=== PATIENT | male | born 1975 | race Caucasian/White ===

== ENCOUNTER 2017-12-19 08:25 | Day surgery (SDC) | payer BC, MEDICAID ==
[2017-12-17 10:24] VITALS: BMI 37.4
[~2017-12-19 08:25] MED LIST: LACTATED RINGERS 1,000 ML IV SCH
[2017-12-19 08:49] VITALS: TEMP 98.7
[2017-12-19] MEDS ORDERED: PROPOFOL 10 MG/ML 20 ML VIAL IV ONE (09:16)
--- NOTE | 2017-12-19 10:03 | P.PCN ---
Date of Procedure: 12/19/17 Procedure(s) Performed: Procedure: Colonoscopy and polypectomy and biopsy. Preoperative diagnosis: History of diarrhea and intermittent rectal bleeding. Postoperative diagnosis: 1. Small cecal polyp snared but no large polyps or cancer. 2. Mild sigmoid diverticulosis with no evidence of acute diverticulitis or strictures. 3. Low-grade internal hemorrhoids not bleeding at the time of this exam, possibly because of intermittent bleeding. 4. Exam of the colon and terminal ileum is, otherwise, normal with no evidence of inflammatory bowel disease. 5. Biopsies obtained from the terminal ileum and right colon to rule out microscopic ileitis and colitis. Preparation: HalfLytely prep. Sedation: Was provided by anesthesia. Brief clinical history: The patient is a 42-year-old male who is scheduled for this evaluation for the above reasons. He had history of chronic diarrhea, mostly postprandial and was told over the years that he has irritable bowel. He has observed intermittent rectal bleeding this year which he thinks is related to him eating sausages. The blood is always fresh and around the stools but not mixed with the stools. He has no anal pain. No family history of inflammatory bowel disease or colon cancer. This would be his first colonoscopy. Procedure: With the patient on his left lateral decubitus position and after informed consent and adequate sedation, the perianal area was active and it did not show any fissures or fistulas. There were no masses felt on digital rectal examination. The Olympus CFQ 160L video colonoscope was then inserted in the rectum in the usual fashion and advanced to the cecum. I intubated the ileocecal valve and examined the terminal ileum. Terminal ileum and colon appeared healthy with no edema, erythema, friability, ulceration, exudation or spontaneous bleeding. There were few small diverticular orifices seen scattered in the sigmoid with no evidence of acute diverticulitis or strictures. There was also a small polyp in the cecum which I snared and retrieved by suction. There were no large polyps or cancer. I obtained biopsies from the terminal ileum and right colon then I retroflexed the endoscope in the rectum before the endoscope was withdrawn. Low-grade internal hemorrhoids were noted with no evidence of bleeding. The patient tolerated the procedure well. Plan: The patient was reassured. Discussed dietary measures and local care for hemorrhoids. He will follow up with you as planned and further plans can be made based on his course and biopsy results. I recommended repeat exam in 5 years because of the finding of polyp.
[2017-12-19 10:25] VITALS: BP 118/82; PULSE 65; RESP 18
== END 2017-12-19 10:47 | disposition home or self-care (01) ==
LOC: ORWHC2ENDO 08:25
DX: D12.0 Benign neoplasm of cecum (principal); K57.30 Diverticulosis of large intestine without perforation or abscess without bleeding; K64.8 Other hemorrhoids; K58.9 Irritable bowel syndrome, unspecified; E11.9 Type 2 diabetes mellitus without complications; J45.909 Unspecified asthma, uncomplicated; G47.33 Obstructive sleep apnea (adult) (pediatric); F17.200 Nicotine dependence, unspecified, uncomplicated; Z91.048 Other nonmedicinal substance allergy status
CPT/HCPCS: 88305; 45380; 45385; J2704

== ENCOUNTER → 2018-05-29 | Outpatient (CLI) | payer BC ==
--- NOTE | 2018-05-29 09:46 | XR ---
EXAM TYPE: LUMBAR SPINE X RAY SERIES COMPARISON: NONE HISTORY: Pain TECHNIQUE: 4 views are submitted. FINDINGS: Alignment is anatomic. The pedicles are intact. The transverse processes are intact. There is no s pondylolysis or spondylolisthesis. Postsurgical change in the left upper quadrant. Degenerative emery ge L5-S1. IMPRESSION: 1. Degenerative disc disease L5-S1. Consider follow-up MRI.
== END | disposition home or self-care (01) ==
LOC: RADXRYALE 08:57
PROVIDERS: ATTEND Physician Assistant Medical
DX: M51.17 Intervertebral disc disorders with radiculopathy, lumbosacral region (principal)
CPT/HCPCS: 72110

== ENCOUNTER → 2018-06-24 | Outpatient (CLI) | payer BC | END | disposition home or self-care (01) | LOC: RADMRIMAIN 12:49 | PROVIDERS: ATTEND Physician Assistant Medical | DX: Z53.9 Procedure and treatment not carried out, unspecified reason (principal) ==

== ENCOUNTER → 2018-06-25 | Outpatient (CLI) | payer BC ==
--- NOTE | 2018-06-25 21:44 | MR ---
EXAMINATION TYPE: MR lumbar spine wo con DATE OF EXAM: 06/25/2018 COMPARISON: Lumbar spine x-ray May 29, 2018. HISTORY: Rt side leg sciatica per order. Back pain down right leg for 2.5 months per patient. TECHNIQUE: Multiplanar, multisequence imaging of the lumbar spine is performed without IV contrast. FINDINGS: Sagittal images of the lumbar spine show vertebral body heights and alignment to appear sat isfactory. There is prominent Schmorl node anterior superior L4 endplate. There is disc desiccation L 3-L4 and L5-S1 levels. There is moderate disc space narrowing with vacuum disc phenomenon L5-S1 level . Posterior disc herniation is present sagittal images. The conus medullaris is normal in position an d signal ending superior L1 level. Heterogeneous Modic type II endplate changes L5-S1 level is noted most prominent inferior L5 endplate. There is 1.3 cm Tarlov cyst posterior inferior S2 level sagittal image 7. Axial images show the T12-L1, L1-L2, and L2-L3 levels all to appear within normal limits. Axial images at L3-L4 level shows disc desiccation otherwise are felt unremarkable. Axial images at L4-L5 level are felt within normal limits. Axial images at L5-S1 level show right paracentral disc protrusion effacing anterolateral thecal sac and lateral recess as well as central right S1 nerve seen best on axial image 4 and sagittal image 9 measuring approximately 7 mm AP diameter by 16 mm transversely. The bilateral neural foramina are pat ent. No suspicious incidental retroperitoneal findings are seen. IMPRESSION: Large disc herniation right L5-S1 level effaces central right S1 nerve likely accounting for patient's symptoms.
== END | disposition home or self-care (01) ==
LOC: RADMRIMAIN 20:30
PROVIDERS: ATTEND Family Medicine
DX: M51.27 Other intervertebral disc displacement, lumbosacral region (principal)
CPT/HCPCS: 72148